=== PATIENT | male | born 1950 | race Caucasian/White ===

== ENCOUNTER 2022-07-13 07:40 | Day surgery (SDC) | payer OTHER ==
[2022-07-11 15:51] VITALS: BMI 34.7
[2022-07-13] MEDS ORDERED: PROPOFOL 120 ML ONE (07:57)
[2022-07-13 07:59] VITALS: TEMP 97.7
[2022-07-13 08:47] VITALS: RESP 18
[2022-07-13 09:09] VITALS: BP 105/65; PULSE 69
== END 2022-07-13 09:00 | disposition home or self-care (01) ==
LOC: FASU-ENDO 07:40
PROVIDERS: ATTEND Internal Medicine Gastroenterology
PROC: 0DJD8ZZ Inspection of Lower Intestinal Tract, Via Natural or Artificial Opening Endoscopic (ICD-10-PCS; principal; 2022-07-13 08:12)
DX: Z12.11 Encounter for screening for malignant neoplasm of colon (principal); Z86.010 Personal history of colon polyps; K57.30 Diverticulosis of large intestine without perforation or abscess without bleeding